=== PATIENT | female | born 1985 | race Caucasian/White ===

== ENCOUNTER 2016-11-08 04:09 | Emergency (ER) | payer BC, OTHER ==
--- NOTE | 2016-11-08 07:13 | RAD ---
ANKLE-LEFT 3 VIEW History: Lateral ankle pain after inversion injury. Comparison: None. Findings: Views of the left ankle were obtained.The osseous structures appear to be intact. The mortise joint is normal. The talar dome contour appears to be within that expected. No focal soft tissue abnormalities are identified. Impression: 1. Negative views of the left ankle.
--- NOTE | 2016-11-08 07:14 | RAD ---
FOOT LEFT 3 VIEWS HISTORY: Lateral foot pain after injury. COMPARISONS: None. FINDINGS: 3 views of the left foot demonstrate normal bony mineralization. The visualized osseous structures appear to be grossly intact. The joint spaces are well-maintained. No focal soft tissue abnormalities are seen. IMPRESSION: 1. Negative views of the left foot.
== END 2016-11-08 05:31 | disposition home or self-care (01) ==
LOC: ED 04:09
DX: S93.402A Sprain of unspecified ligament of left ankle, initial encounter (principal); X50.0XXA Overexertion from strenuous movement or load, initial encounter; Y92.9 Unspecified place or not applicable